=== PATIENT | female | born 1990 | race American Indian/Alaskan Native ===

== ENCOUNTER 2020-08-24 18:47 | Emergency (ER) | payer SELFPAY ==
[2020-08-24 21:37] VITALS: BP 115/78
[2020-08-24 21:57] LABS: Basophils % (Auto) 0.7 % (0.0-1.8); Eosinophils # (Auto) 0.1 K/mm3 (0.0-0.4); Eosinophils % (Auto) 1.1 % (0.0-4.3); Hematocrit 38.9 % (30.3-42.9); Hemoglobin 12.2 gm/dl (10.1-14.3); Lymphocytes # (Auto) 2.4 K/mm3 (1.2-5.4); Lymphocytes % (Auto) 44.1 % (13.4-35.0); Mean Corpuscular HGB Conc 31 % (30-34); Mean Corpuscular Volume 71 fl (79-97); Monocytes # (Auto) 0.5 K/mm3 (0.0-0.8); Monocytes % (Auto) 8.5 % (0.0-7.3); Platelet Count 142 K/mm3 (140-440); Red Blood Count 5.51 M/mm3 (3.65-5.03); Red Cell Distribution Width 16.9 % (13.2-15.2)
--- NOTE | 2020-08-25 02:04 | Emergency Department Report ---
ED HPI - General Chief complaint: Vaginal Bleeding Stated complaint: PREG BLEEDING/BACK AND ABD PAIN Time Seen by Provider: 08/25/20 01:59 Source: patient Mode of arrival: Ambulatory Limitations: No Limitations - History of Present Illness Initial comments: Patient is a 30-year-old female who presents emergency room with complaints of lower abdominal cramping and vaginal bleeding. Patient states her symptoms are worsening. Patient states that on August 09, 2020 she had a positive test. Patient states her OB ointment is August 30. Patient states she is a G3, . Patient states that her abdominal pain and cramps started 2 days ago. Patient states that her vaginal bleeding started 1 day ago. Patient states it started out light and has worsened and is now heavy with clots. Patient is unsure when her last menstrual period was. Patient states the abdominal cramps are an 8 out of 10. Patient states the pain is worse with movement and better with rest. Patient denies fever and chills. Patient denies vaginal discharge. Patient denies dysuria. Patient denies chest pain or shortness of breath. Patient denies recent travel. Patient denies recent international travel. Patient denies exposure to the novel coronavirus. Patient denies sick contacts. Patient denies fever and chills. Patient denies cough. Patient denies diarrhea. Patient denies coming in contact with anybody with symptoms of the novel coronavirus. MD Complaint: abdominal pain, vaginal bleeding, "contractions" -: Sudden Radiation: suprapubic Severity: severe Severity scale (0 -10): 8 Quality: cramping Consistency: constant Improves with: rest Worsens with: movement Associated symptoms: vaginal bleeding, abdominal pain. denies: nausea/vomiting, vaginal discharge, dysuria, headache, vision changes, malaise, dysparuenia, rash, seizure, shortness of breath, syncope, weakness Vaginal bleeding: heavy, clots :: Yes OB History - Current : no complications OB History - Previous Pregnancies: no complications Pre-ancelmo care: none - Related Data : 3 Para: 2 Ab: 0 Allergies Allergy/AdvReac Type Severity Reaction Status Date / Time No Known Allergies Allergy Unverified 08/24/20 21:37 ED Review of Systems ROS: Stated complaint: PREG BLEEDING/BACK AND ABD PAIN Other details as noted in HPI Constitutional: denies: chills, fever Eyes: denies: eye pain, eye discharge, vision change ENT: denies: ear pain, throat pain Respiratory: denies: cough, shortness of breath, wheezing Cardiovascular: denies: chest pain, palpitations Endocrine: no symptoms reported Gastrointestinal: abdominal pain. denies: nausea, diarrhea Genitourinary: as per HPI. denies: urgency, dysuria, discharge Musculoskeletal: denies: back pain, joint swelling, arthralgia Skin: denies: rash, lesions Neurological: denies: headache, weakness, paresthesias Psychiatric: denies: anxiety, depression Hematological/Lymphatic: denies: easy bleeding, easy bruising ED Past Medical Hx - Past Medical History Previous Medical History?: No - Surgical History Past Surgical History?: Yes Additional Surgical History: - Family History Family history: no significant - Social History Smoking Status: Never Smoker Substance Use Type: None ED Physical Exam - General Limitations: No Limitations General appearance: alert, in no apparent distress - Head Head exam: Present: atraumatic, normocephalic - Eye Eye exam: Present: normal appearance - ENT ENT exam: Present: mucous membranes moist - Neck Neck exam: Present: normal inspection - Respiratory Respiratory exam: Present: normal lung sounds bilaterally. Absent: respiratory distress - Cardiovascular Cardiovascular Exam: Present: regular rate, normal rhythm. Absent: systolic murmur, diastolic murmur, rubs, gallop - GI/Abdominal GI/Abdominal exam: Present: soft, normal bowel sounds. Absent: distended, tenderness, guarding - Extremities Exam Extremities exam: Present: normal inspection - Back Exam Back exam: Present: normal inspection - Neurological Exam Neurological exam: Present: alert, oriented X3 - Psychiatric Psychiatric exam: Present: normal affect, normal mood - Skin Skin exam: Present: warm, dry, intact, normal color. Absent: rash ED Course Vital Signs 08/24/20 21:34 Temperature 98.3 F Pulse Rate 80 Respiratory 16 Rate Blood Pressure 115/78 O2 Sat by Pulse 98 Oximetry - Reevaluation(s) Reevaluation #1: I discussed all results and clinical findings with patient. I discussed plan of care with patient. Patient agrees with plan of care. Patient is stable for discharge. Patient will be discharged home. Patient given discharge instructions. Patient voiced understanding of discharge instructions. 08/25/20 03:59 ED Medical Decision Making - Lab Data Result diagrams: 08/24/20 21:42 - Medical Decision Making Patient is a 30-year-old female that presents emergency being , abdominal pain and vaginal bleeding. Patient has confirmed with home test. Patient has not had an [facility] appointment or an ultrasound to confirm. Patient presents emergency room with severe lower abdominal pain and cramping and heavy vaginal bleeding with clots. Patient had labs done which were essentially unremarkable and the hCG was negative. Patient had a ultrasound to confirm IUP overnight. Ultrasound was negative for IUP and were essentially unremarkable. Patient stable for discharge. Patient given discharge instructions. - Differential Diagnosis Miscarriage, , late menstruation. Critical care attestation.: If time is entered above; I have spent that time in minutes in the direct care of this critically ill patient, excluding procedure time. ED Disposition Clinical Impression: Abdominal cramping, Spontaneous miscarriage, Vaginal bleeding affecting early Disposition: DC-01 TO HOME OR SELFCARE Is pt being admited?: No Does the pt Need Aspirin: No Condition: Stable Instructions: Spontaneous Miscarriage (ED) Additional Instructions: Patient to follow-up with primary care in 2 to 3 days. Patient to follow-up with [facility] in 2 to 3 days. Patient to rest. Patient to increase water. Patient to avoid strenuous exercise or heavy lifting until cleared by [facility]. Patient to take a vitamin. patient to take Tylenol or ibuprofen as needed for pain. Patient to return to the ER if condition worsens, changes or new symptoms arise. Referrals: PRIMARY CARE, [Primary Care Provider] - 2-3 Days Time of Disposition: 03:53
--- NOTE | 2020-08-25 03:19 | Ultrasound Report ---
US transvaginal, US OB <= 14 weeks fetus INDICATION / CLINICAL INFORMATION: abd cramps. preg.. COMPARISON: None available. FINDINGS: Transabdominal and transvaginal imaging was performed. Uterus measures 9.2 x 5.3 x 7.2 cm. Endometrial echo complex measures 9 mm. No intrauterine gestation al sac is seen. There are 3 cysts at the cervix. These are likely nabothian cysts. Largest of these m easures 1.1 cm. Ovaries are unremarkable. No adnexal lesions, no significant free fluid. IMPRESSION: 1. No sonographic evidence of intrauterine . No adnexal lesions. 2. There are 3 cervical cysts, these are likely nabothian cysts. Signer Name: Garry Lewis MD Signed: 08/25/2020 3:15 AM Workstation Name: [id number]
== END 2020-08-25 03:58 | disposition home or self-care (01) ==
LOC: ED 18:47
DX: O03.9 Complete or unspecified spontaneous abortion without complication (principal); Z3A.14 14 weeks gestation of pregnancy
CPT/HCPCS: 36415; 76801; 76817; 76830; 84702; 85025; 86900; 86901